=== PATIENT | male | born 1965 ===

== ENCOUNTER 2022-01-24 09:00 | Inpatient (IN) | payer OTHER ==
[~2022-01-24] VITALS: Ht 170.2 cm; Wt 69.9 kg
[2022-01-24] MEDS ORDERED: ZOLOFT50 MG PO (10:11)
[2022-01-24] MEDS ORDERED: NAMENDA10 MG PO (10:11)
[2022-01-24] MEDS ORDERED: ZESTRIL20 MG PO (10:11)
[2022-01-24] MEDS ORDERED: ARICEP PO (10:12)
[2022-01-30] MEDS ORDERED: ARICEPT23 MG PO (09:35)
[2022-02-01] MEDS ORDERED: PERCOCET 5-3251 EACH PO (16:06)
== END 2022-02-01 22:38 | disposition home or self-care (01) | DRG 331 ==
LOC: O/R 01-30 07:58 → SURG 01-30 08:30
PROVIDERS: ADMIT Surgery; ATTEND Surgery
PROC: 07BB4ZZ Excision of Mesenteric Lymphatic, Percutaneous Endoscopic Approach (ICD-10-PCS; 2022-01-30)
PROC: 0DTF4ZZ Resection of Right Large Intestine, Percutaneous Endoscopic Approach (ICD-10-PCS; principal; 2022-01-30 08:30)
DX: C18.0 Malignant neoplasm of cecum (principal); D12.2 Benign neoplasm of ascending colon; D36.0 Benign neoplasm of lymph nodes; D12.1 Benign neoplasm of appendix; I11.9 Hypertensive heart disease without heart failure; D50.0 Iron deficiency anemia secondary to blood loss (chronic); Z20.822 Contact with and (suspected) exposure to COVID-19; G30.8 Other Alzheimer's disease; F02.80 Dementia in other diseases classified elsewhere, unspecified severity, without behavioral disturbance, psychotic disturbance, mood disturbance, and anxiety